=== PATIENT | female | born 1955 | race Caucasian/White ===

== ENCOUNTER 2025-05-21 15:09 | Outpatient (CLI) | payer MEDICARE | END 2025-05-21 15:10 | disposition home or self-care (01) | LOC: SCSRAD 15:09 | PROVIDERS: ATTEND Internal Medicine Rheumatology | DX: M51.360 Other intervertebral disc degeneration, lumbar region with discogenic back pain only (principal); M47.812 Spondylosis without myelopathy or radiculopathy, cervical region; M54.6 Pain in thoracic spine; M54.2 Cervicalgia; L40.0 Psoriasis vulgaris; M41.9 Scoliosis, unspecified | CPT/HCPCS: 72040; 72072; 72100 ==